=== PATIENT | male | born 1990 | race Hispanic/Latino ===

== ENCOUNTER 2017-11-19 10:26 | Emergency (ER) | payer OTHER ==
[2017-11-19 10:29] VITALS: BMI 20.9
[2017-11-19 10:30] VITALS: O2SAT 99
[2017-11-19] MEDS ORDERED: Sodium Chloride 0.9% 1,000 ML IV STA (10:48)
[2017-11-19 11:12] LABS: BASO % 0.6 % (0.0-2.0); EOS # 0.3 K/uL (0.0-0.7); EOS % 3.6 % (0.0-4.0); HEMOGLOBIN 14.7 g/dL (12.0-18.0); LYMPH # 1.3 K/uL (1.0-4.3); MEAN CELL VOLUME 84.7 fl (80.0-94.0); MEAN PLATELET VOLUME 8.3 fl (7.2-11.7); MONO # 0.5 K/uL (0.0-0.8); MONO % 6.2 % (0.0-10.0); NEUT # 5.7 K/uL (1.8-7.0); NEUT % 72.6 % (50.0-75.0); NRBC % 0.1 % (0.0-0.0); RBC 5.26 Mil/uL (4.40-5.90); RED CELL DISTRIBUTION WIDTH 13.5 % (11.5-14.5); WHITE BLOOD COUNT 7.8 K/uL (4.8-10.8)
[2017-11-19 11:25] LABS: ALB/GLOB RATIO 1.3 (1.0-2.1); ALBUMIN 4.4 g/dL (3.5-5.0); ALT/SGPT 38 U/L (21-72); AST/SGOT 32 U/L (17-59); BLOOD UREA NITROGEN 23 mg/dl (9-20); GFR AFRICAN-AMERICAN > 60; GFR NON-AFRICAN AMERICAN > 60
--- NOTE | 2017-11-19 13:03 | ED PDOC ---
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 States hes had multiple episodes of syncope as a child/teenager last happened about 3 years ago, told workup was ok but unsure of specifics. Just finished police academy and denies exercise intolerance, chest pain, SOB, blood in stool, weight loss or other complaints. Past Medical History Reviewed: Historical Data, Nursing Documentation, Vital Signs Vital Signs: Last Vital Signs Temp 97.8 F 11/19/17 10:30 Pulse 62 11/19/17 10:30 Resp 17 11/19/17 10:30 BP 112/58 L 11/19/17 10:30 Pulse Ox 99 11/19/17 10:30 - Medical History Other PMH: syncope - Surgical History Surgical History: No Surg Hx - Family History Family History: States: Unknown Family Hx - Social History Current smoker - smoking cessation education provided: No Alcohol: Social (last drink 5 days ago) - Allergies Allergies/Adverse Reactions: Allergies Allergy/AdvReac Type Severity Reaction Status Date / Time No Known Allergies Allergy Verified 11/19/17 10:40 Review of Systems ROS Statement: Except As Marked, All Systems Reviewed And Found Negative Constitutional: Negative for: Fever Cardiovascular: Positive for: Palpitations, Light Headedness. Negative for: Chest Pain, Orthopnea, Edema Respiratory: Negative for: Shortness of Breath Gastrointestinal: Negative for: Nausea, Vomiting, Abdominal Pain Genitourinary Male: Negative for: Dysuria Musculoskeletal: Negative for: Neck Pain Skin: Negative for: Rash, Lesions, Jaundice Neurological: Positive for: Dizziness. Negative for: Weakness, Numbness, Headache Psych: Positive for: Anxiety. Negative for: Depression Physical Exam - Reviewed Nursing Documentation Reviewed: Yes Vital Signs Reviewed: Yes - Physical Exam Appears: Positive for: Well, Non-toxic, No Acute Distress Head Exam: Positive for: ATRAUMATIC, NORMAL INSPECTION, NORMOCEPHALIC Skin: Positive for: Normal Color, Warm, DRY Eye Exam: Positive for: EOMI, Normal appearance, PERRL ENT: Positive for: Normal ENT Inspection Neck: Positive for: Normal, Painless ROM Cardiovascular/Chest: Positive for: Bradycardia. Negative for: Irregularly Irregular Respiratory: Positive for: CNT, Normal Breath Sounds Pulses-Radial (L): 3+/4+ Pulses-Radial (R): 3+/4+ Gastrointestinal/Abdominal: Positive for: Soft. Negative for: Tenderness, Guarding Back: Positive for: Normal Inspection Extremity: Positive for: Normal ROM Neurologic/Psych: Positive for: Alert, Oriented, Cerebellar Tests (normal). Negative for: Motor/Sensory Deficits - Laboratory Results Result Diagrams: 11/19/17 11:03 11/19/17 11:03 - ECG ECG: Positive for: Interpreted By [place] ECG Rhythm: Positive for: Sinus Bradycardia, Nonspecific Changes Rate: 48 O2 Sat by Pulse Oximetry: 99 Pulse Ox Interpretation: Normal Medical Decision Making Medical Decision Making: workup for syncope in otherwise healthy athletic appearing male with prior history of syncope but unknown workup EKG sinus avel, borderline BP labs reviewed and unremarkable D/w Dr Mcgovern director of manufacturing operations cardiology recommends echo, ordered Dr Mcgovern cardio saw patient in ED and reviewed echo, cleared for discharge w outpatient followup for event monitor CT brain performed revealing: None available. TECHNIQUE: Axial computed tomography images were obtained through the head/brain without intravenous contrast. Radiation dose: Total exam DLP = 889 mGy-cm. This CT exam was performed using one or more of the following dose reduction techniques: Automated exposure control, adjustment of the mA and/or kV according to patient size, and/or use of iterative reconstruction technique. FINDINGS: HEMORRHAGE: No intracranial hemorrhage. BRAIN: A posterior fossa left paracentral CSF like flexion at minimum 2 cm in size possible minimal posterior inner table remodeling. No lytic lesion. A benign arachnoid developmental cyst is a consideration. . No otherwise mass effect midline shift or edema. No atrophy or chronic microvascular ischemic changes. VENTRICLES: Unremarkable. No hydrocephalus. CALVARIUM: Unremarkable. PARANASAL SINUSES: Unremarkable as visualized. No significant inflammatory changes. MASTOID AIR CELLS: Unremarkable as visualized. No inflammatory changes. OTHER FINDINGS: A posterior fossa left paracentral CSF like collection is compatible with a incidental benign arachnoid cyst at minimum 2 cm in size possible minimal posterior inner table remodeling. No lytic lesion. A benign arachnoid developmental cyst is a consideration. IMPRESSION: No intracranial hemorrhage or mass effect. No calvarial fracture. The posterior fossa left paracentral CSF like is compatible with a incidental arachnoid developmental cyst. Consider MRI of the brain without with contrast enhancement and/or neurology follow-up evaluation Will DC to followup for outpatient MRI and neuro eval. Patient in ED 5+ hrs remains asymptomatic, normal BP now and no recurrent of dizziness or syncope. Disposition - Clinical Impression Clinical Impression: Syncope, Arachnoid cyst - Patient ED Disposition Is Patient to be Admitted: No Counseled Patient/Family Regarding: Studies Performed, Diagnosis, Need For Followup - Disposition Referrals: Melina Mcgovern MD [Staff Provider] - Dinora Packer MD [Medical Doctor] - Rafael Talamantes MD [Staff Provider] - Disposition: Routine/Home Disposition Time: 15:31 Condition: STABLE Additional Instructions: Followup with Dr Mcgovern as outpatient for further testing. Return to ER for any new or worsening symptoms. RECOMMEND OUTPATIENT MRI OF BRAIN FOR POSSIBLE ARACHNOID CYST. Instructions: Syncope (Fainting) Forms: [employer] ([employer])
[2017-11-19 13:06] VITALS: PULSE 48
--- NOTE | 2017-11-19 15:29 | CT ---
PROCEDURE: CT HEAD WITHOUT CONTRAST. HISTORY: syncope head injury COMPARISON: None available. TECHNIQUE: Axial computed tomography images were obtained through the head/brain without intravenous contrast. Radiation dose: Total exam DLP = 889 mGy-cm. This CT exam was performed using one or more of the following dose reduction techniques: Automated exposure control, adjustment of the mA and/or kV according to patient size, and/or use of iterative reconstruction technique. FINDINGS: HEMORRHAGE: No intracranial hemorrhage. BRAIN: A posterior fossa left paracentral CSF like flexion at minimum 2 cm in size possible minimal posterior inner table remodeling. No lytic lesion. A benign arachnoid developmental cyst is a consideration. . No otherwise mass effect midline shift or edema. No atrophy or chronic microvascular ischemic changes. VENTRICLES: Unremarkable. No hydrocephalus. CALVARIUM: Unremarkable. PARANASAL SINUSES: Unremarkable as visualized. No significant inflammatory changes. MASTOID AIR CELLS: Unremarkable as visualized. No inflammatory changes. OTHER FINDINGS: A posterior fossa left paracentral CSF like collection is compatible with a incidental benign arachnoid cyst at minimum 2 cm in size possible minimal posterior inner table remodeling. No lytic lesion. A benign arachnoid developmental cyst is a consideration. IMPRESSION: No intracranial hemorrhage or mass effect. No calvarial fracture. The posterior fossa left paracentral CSF like is compatible with a incidental arachnoid developmental cyst. Consider MRI of the brain without with contrast enhancement and/or neurology follow-up evaluation
[2017-11-19 15:48] VITALS: BP 122/76; RESP 18; TEMP 97.9
--- NOTE | 2017-11-20 08:15 | CARD ---
APPROVED REPORT EXAM: Two-dimensional and M-mode echocardiogram with Doppler and color Doppler. Other Information Quality : [employer] : INDICATION BRADYCARDIA 2D DIMENSIONS IVSd0.83 (0.7-1.1cm)LVDd4.45 (3.9-5.9cm) PWd0.86 (0.7-1.1cm)IVSs1.02 (0.8-1.2cm) LVDs3.44 (2.5-4.0cm)FS (%) 22.7 % PWs1.17 (0.8-1.2cm) M-Mode DIMENSIONS Left Atrium (MM)3.02 (2.5-4.0cm)IVSd0.51 (0.7-1.1cm) Aortic Root2.55 (2.2-3.7cm)LVDd5.71 (4.0-5.6cm) Aortic Cusp Exc.2.32 (1.5-2.0cm)PWd0.44 (0.7-1.1cm) IVSs0.82 cmFS (%) 28 % LVDs4.12 (2.0-3.8cm)PWs0.77 cm Mitral Valve MV E Rewrvgqc80.2cm/sMV A Qdljfrya76.6cm/sE/A ratio2.3 TDI Lateral E' Peak V21.39cm/sMedial E' Peak V21.39cm/sE/Lateral E'3.8 E/Medial E'3.8 Tricuspid Valve TR Peak [id number]/sRAP [id number] Peak Gr.16mmHg [id number] LEFT VENTRICLE The left ventricle is normal size. There is normal left ventricular wall thickness. Left ventricle systolic function is normal. The Ejection Fraction is 60-65%. There is normal LV segmental wall motion. The left ventricular diastolic function is normal. RIGHT VENTRICLE The right ventricle is normal size. There is normal right ventricular wall thickness. The right ventricular systolic function is normal. ATRIA The left atrium size is normal. The right atrium size is normal. AORTIC VALVE The aortic valve is normal in structure. No aortic regurgitation is present. There is no aortic valvular stenosis. MITRAL VALVE The mitral valve is normal in structure. There is no evidence of mitral valve prolapse. There is no mitral valve stenosis. There is no mitral valve regurgitation noted. TRICUSPID VALVE The tricuspid valve is normal in structure. There is no tricuspid valve regurgitation noted. PULMONIC VALVE The pulmonary valve is normal in structure. There is no pulmonic valvular regurgitation. GREAT VESSELS The aortic root is normal in size. The IVC is normal in size and collapses >50% with inspiration. PERICARDIAL EFFUSION The pericardium appears normal. <Conclusion> The left ventricle is normal size. There is normal left ventricular wall thickness. There is normal LV segmental wall motion. Left ventricle systolic function is normal. The Ejection Fraction is 60-65%. The left ventricular diastolic function is normal.
--- NOTE | 2017-11-20 08:31 | CARD ---
APPROVED REPORT EKG Measurement Heart [id number] <Conclusion> Sinus bradycardia RSR' or QR pattern in V1 suggests right ventricular conduction delay Borderline ECG
== END 2017-11-19 15:45 | disposition home or self-care (01) ==
LOC: H.ER 10:26
DX: R55 Syncope and collapse (principal); S09.90XA Unspecified injury of head, initial encounter; W19.XXXA Unspecified fall, initial encounter; Y99.0 Civilian activity done for income or pay
CPT/HCPCS: 70450; 80053; 82550; 83735; 84484; 85025; 93005; 93306; 99285; J7030